=== PATIENT | female | born 1970 | race Two or more races ===

== ENCOUNTER 2022-07-06 22:25 | Emergency (ER) | payer OTHER ==
[~2022-07-06] VITALS: Ht 157.5 cm; Wt 90.7 kg
[2022-07-07] MEDS ORDERED: ACETAMINOPHEN500 M1 PO (01:30)
[2022-07-07] MEDS ORDERED: NORFLEX100MG PO (01:30)
[2022-07-07] MEDS ORDERED: PEPCID AC20 MG PO (01:30)
== END 2022-07-07 01:55 | disposition home or self-care (01) ==
LOC: ER 22:25
DX: R07.89 Other chest pain (principal); K20.90 Esophagitis, unspecified without bleeding; Z88.8 Allergy status to other drugs, medicaments and biological substances